=== PATIENT | female | born 1985 | race Caucasian/White ===

== ENCOUNTER → 2016-11-16 | Outpatient (CLI) | payer BC ==
--- NOTE | 2016-11-17 08:52 | DI ---
Indication: ITS.REASON: R10.32 LLQ ABD PAIN PROCEDURE: US PELVIC NON OB W/TRANS VAG: Encounter: Initial Comparison: None FINDINGS: Transvaginal and transabdominal pelvic imaging was performed. The uterus measures 7.2 x 4.8 x 4.1 cm. The parenchyma is homogeneous without fibroids. The endometrial stripe measures 9 mm in thickness. There is no evidence of focal endometrial mass. Both ovaries are identified. The right ovary measures 3.8 x 2.5 x 3.8 cm. The left ovary and is slightly asymmetrically enlarged and measures 5.4 x 3.1 x 3.7 cm. There is also a 2.3 x 1.4 x 2.1 cm hypoechoic cystic lesion within the ovary with some peripheral echogenicity that could represent a hemorrhagic cyst. There are no abnormal adnexal masses detected. Normal Doppler flow seen to both ovaries. Moderate free pelvic fluid. IMPRESSION: 1. Possible left ovarian hemorrhagic cyst that could be ruptured given the free fluid. 2. No sonographic evidence of ovarian torsion although this remains a clinical diagnosis. There is a preliminary report by [facility]. .
== END ==
LOC: IMA 16:49
PROVIDERS: ATTEND Nurse Practitioner Family
DX: R19.09 Other intra-abdominal and pelvic swelling, mass and lump (principal); R93.8 Abnormal findings on diagnostic imaging of other specified body structures; R10.32 Left lower quadrant pain